=== PATIENT | male | born 2005 | race Caucasian/White ===

== ENCOUNTER 2023-12-26 20:52 | Emergency (ER) | payer BC, SELFPAY ==
[2023-12-26 20:56] VITALS: BP 159/109; BMI 27.4
[2023-12-26 21:16] LABS: % Basophils 0.5 % (0-2); % Eosinophils 0.6 % (0-6); % Immature Granulocytes 0.2 % (0-0.5); % Lymphocytes 28.3 % (20.5-51.1); % Monocytes 5.4 % (1.7-9.3); Absolute Eosinophils 0.1 10^3/uL (0-0.7); Absolute Lymphocytes 2.4 10^3/uL (1.2-3.4); Absolute Monocytes 0.5 10^3/uL (0.1-0.6); Absolute Neutrophils 5.6 10^3/uL (1.4-6.5); Hematocrit 45.9 % (39.0-52.0); Hemoglobin 15.4 g/dL (13.0-18.0); Mean Corp Hgb Conc. 33.6 g/dL (33.0-37.0); Mean Corpuscular Hgb 27.7 pg (27.0-31.0); Mean Corpuscular Volume 82.6 fL (80.0-94.0); Mean Platelet Volume 10.9 fL (7.4-10.4); Nucleated Red Blood Cells % 0 % (-); Platelet Count 204 10^3/uL (130-400); Red Blood Cell Count 5.56 10^6/uL (4.70-6.10); Red Cell Dist. Width 12.7 % (11.5-14.5); White Blood Cell Count 8.5 10^3/uL (4.8-10.8)
[2023-12-26 21:40] LABS: ALT (SGPT) 24 U/L (0-50); AST (SGOT) 29 U/L (17-59); Albumin 5.2 g/dl (3.5-5.0); Alkaline Phosphatase 58 U/L (38-126); Blood Urea Nitrogen 22 mg/dl (9-20); Calcium 9.2 mg/dl (8.4-10.2); Carbon Dioxide 26 mmol/L (22-30); Chloride 100 mmol/L (98-107); Estimated Creatinine Clearance 85 ml/min; Glucose 103 mg/dl (70-99); Potassium 4.1 mmol/L (3.5-5.1); Sodium 138 mmol/L (135-145); Total Protein 7.9 g/dl (6.3-8.2); eGFR > 60.00
[2023-12-26 21:42] LABS: Troponin I 0.015 ng/ml
[2023-12-26 21:55] LABS: Total Bilirubin 0.5 mg/dl (0.2-1.3)
[2023-12-26 22:05] VITALS: BP 118/74
--- NOTE | 2023-12-26 22:48 | ED.GENMED ---
History of Present Illness
General
Chief Complaint: Chest Pain
Source: patient
Exam Limitations: none
Time Seen by Provider: 12/26/23 22:12
History of Present Illness
History of Present Illness:
This is a 18 year old male that comes in with c/o feeling like his heart beat is taking over his chest. States that for the past week when he goes to bed at night he reads. States that he is reading the shin[employer] at this time. State that he feels
like his entire chest is filled with his heart beat. States that he does not feel like it is a panic attack but he has to get up and walk around and take deep breaths. States that then he may get a headache. States that occasionally he is
nauseated. Denies any fever, chills, chest pain, SOB, abd pain, vomiting, diarrhea, headache at this time, dizziness, urinary burning .
Past History
Past History
ED Past Medical History: Psychiatric (Anxiety); Negative Asthma, HTN, Hypercholesterolemia or NIDDM
ED Past Surgical History: None
Social History
Tobacco: Smoker (occasionally)
Alcohol: Occasional
Personal: Single
Living: alone
Review of Systems
Review of Systems
All Other Systems: ROS reviewed and negative except as documented in HPI and ROS
Constitutional: Reports no symptoms; Denies fever or chills
EENT: Reports no symptoms
Respiratory: Reports no symptoms; Denies cough or trouble breathing
Cardiac: Reports other (Chest filled with his heart beat)
ABD/GI: Reports nausea; Denies abdominal pain, vomiting or diarrhea
: Reports no symptoms; Denies dysuria, frequency or urgency
Musculoskeletal: Reports no symptoms
Skin: Reports no symptoms
Neurological: Denies dizzy or headache
Psychiatric: Reports anxiety
Phy Exam
General Physical Exam
General Presentation: well appearing and no apparent distress
General age: appears stated age
General Skin: warm and dry
General Habitus: normal
General Mental: alert
General Hydration: appears well hydrated
ENT Exam
ENT Exam: TM's normal, pharynx normal and neck supple
Eye Exam
Eye Exam: EOMI
Cardiovascular Exam
Cardiovascular Exam: regular rate/rhythm, no edema, no murmur and normal peripheral pulses
Pulmonary Exam
Pulmonary Exam: lungs clear, no respiratory distress, no rales, chest non tender, no crackles, no rhonchi, no wheezing and no cough
Gastrointestinal Exam
Gastrointestinal Exam: normal bowel sounds, non tender, soft, no organomegaly, no pulsatile mass and non distended
Musculoskeletal Exam
Musculoskeletal Exam: full ROM and no edema
Skin Exam
Skin Exam: normal color, warm/dry, no rash and no petechia
Psychiatric Exam
Psychiatric Exam: normal mood/affect
Scores
Heart Score for Chest Pain Patients
STEMI patient?: Not applicable
Course
Orders/Labs/Results
Orders:
Orders
12/26/23 20:53
Electrocardiogram (*1) Urgent
Reason for Study: Chest Pain
EKG- Treatment ONCE
CXR2 [CR Chest - 2 Views ] Urgent
Comment:
Reason For Exam: pain
12/26/23 21:06
Complete Blood Count/With Diff Urgent
Comprehensive Metabolic Panel Urgent
Troponin I Urgent
12/26/23 23:21
D-Dimer Urgent
Abnormal Lab Results
12/26/23
21:06
MPV 10.9 H fL
(7.4-10.4)
BUN 22 H mg/dl
(9-20)
Glucose 103 H mg/dl
(70-99)
Albumin 5.2 H g/dl
(3.5-5.0)
12/26/23 21:06
12/26/23 21:06
Dehydration, Glucose nonfasting, Albumin slightly elevated. D-dimer <0.27, Troponin 0.015
Vital Signs
Initial and Last Documented VS:
Initial Vital Signs
Temp Pulse Resp BP Pulse Ox
98.2 F 82 16 159/109 99
12/26/23 20:56 12/26/23 20:56 12/26/23 20:56 12/26/23 20:56 12/26/23 20:56
Last Documented Vital Signs
Temp Pulse Resp BP Pulse Ox
98.2 F 82 16 170/66 99
12/26/23 20:56 12/26/23 20:56 12/26/23 20:56 12/26/23 23:18 12/26/23 20:56
MDM/Problems Addressed
Differential Diagnosis Includes:
Anxiety,
MDM/Problems Addressed:
This is a 18 year old male that comes in with c/o feeling like his heart beat is filling his chest. States that when he lays down in bed at night this increased feeling of his heart beat filling his chest starts. Patient states that he is reading
the [employer].
Explained to patient that his blood work shows some dehydration. His troponin is normal. This sounds more like anxiety. Encouraged patient to change his choice of books. Will get D-dimer. Chest x-ray and labs.
Into see patient. Explained that his chest x-ray was normal and his D-dimer was negative. This is most likely anxiety. Patient to switch his book Selection to something that does not product anxiety. Patient to follow up with the family doctor.
Increase his water intake to 8-8oz glasses daily. Return with any concerns.
Chronic conditions affecting care: Psychiatric illness (Anxiety)
Acute Exacerbation and/or Progression of Chronic Illness: Psychiatric illness (Anxiety)
*Radiology
Radiology exam reviewed: preliminary read by ED provider (Chest- Negative for active disease)
*Pulse Oximetry
Patient hypoxic: no
*EKG
Interpreted by ED Provider?: Yes
Heart Rate: 79
Rate: normal
Rhythm: sinus arrhythmia
[place]: normal axis
Interval: normal interval
QRS Pattern: normal QRS
Ischemia: no ischemia
*Critical Care Note
Total Time (30-74mins, 75-104mins- exclusive of procedures): Not Applicable
ED Attending Note
-
Portions of this chart may have been created with voice recognition software.� Occasional wrong word or��sound alike� substitutions may have occurred due to the inherent limitations of voice recognition software.
Discharge Plan
Departure
Patient Disposition: Home (Routine Discharge)
Date of Disposition: 12/26/23
Time of Disposition: 23:59
Patient with high blood pressure during this ER visit?: Yes
Condition: Good
Covid-19: Not Applicable
Discharge Problem:
Anxiety
Instructions: Anxiety, Adult ED, BLOOD PRESSURE
Prescriptions:
No Action
No Current Medications
0
Referrals:
NONE,* [Active] -
Activity Restrictions/Additional Instructions:
As discussed,your blood work shows that you are Dehydration. Please increase your water intake to 8-8oz glasses daily. This is most likely anxiety. Please change your selection of books to read at night. Follow up with the family doctor for
recheck. IF YOU HAVE ANY OTHER CONCERNS PLEASE RETURN TO THE EMERGENCY ROOM.
Interventions
Interventions:
*Risk Screen - Suicide Last Done: 12/26/23 20:56
*General Assessment Last Done: 12/26/23 22:11
*Neglect/Abuse Screening Last Done: 12/26/23 20:56
ED- Fall Risk Assessment Last Done: 12/26/23 20:56
ED- Cardiac Assessment Last Done: 12/26/23 22:10
Discharge Date and Time
Print Language: BULGARIAN
[2023-12-26 23:18] VITALS: BP 170/66
[2023-12-26 23:39] LABS: D-Dimer < 0.27 ug/mlFEU (0.00-0.50)
[2023-12-27] VITALS: BP 157/68
== END 2023-12-27 00:09 | disposition home or self-care (01) ==
LOC: EMR 20:52
PROVIDERS: Clinical Nurse Specialist Family Health; Emergency Medicine; EMERGENCY PHYSICIAN Emergency Medicine; FAMILY PHYSICIAN Nurse Practitioner Adult Health
DX: F41.9 Anxiety disorder, unspecified (principal); R11.0 Nausea; I49.8 Other specified cardiac arrhythmias; E86.0 Dehydration; R03.0 Elevated blood-pressure reading, without diagnosis of hypertension; F17.200 Nicotine dependence, unspecified, uncomplicated
CPT/HCPCS: 99283; 71046; 80053; 84484; 85025; 85379; 93005

== ENCOUNTER 2025-02-14 18:09 | Emergency (ER) | payer BC, SELFPAY ==
[2025-02-14 18:11] VITALS: BP 137/80
[2025-02-14 20:12] VITALS: BMI 28.0
[2025-02-14] MEDS: NSS 1000 IV (20:25)
[2025-02-14 20:26] VITALS: BP 126/80
[2025-02-14 20:34] LABS: Hematocrit 46.0 % (39.0-52.0); Hemoglobin 15.2 g/dL (13.0-18.0); Mean Corp Hgb Conc. 33.0 g/dL (33.0-37.0); Mean Corpuscular Volume 81.7 fL (80.0-94.0); Nucleated Red Blood Cells % 0 % (-); Platelet Count 196 10^3/uL (130-400); Red Cell Dist. Width 13.1 % (11.5-14.5)
[2025-02-14 20:56] LABS: ALT (SGPT) 28 U/L (0-50); AST (SGOT) 21 U/L (17-59); Albumin 5.0 g/dl (3.5-5.0); Alkaline Phosphatase 50 U/L (38-126); Blood Urea Nitrogen 13 mg/dl (9-20); Calcium 9.7 mg/dl (8.4-10.2); Carbon Dioxide 27 mmol/L (22-30); Chloride 102 mmol/L (98-107); Estimated Creatinine Clearance 121 ml/min; Glucose 98 mg/dl (70-99); Potassium 4.3 mmol/L (3.5-5.1); Sodium 138 mmol/L (135-145); Total Protein 7.7 g/dl (6.3-8.2); eGFR > 60.00
--- NOTE | 2025-02-14 21:51 | EDRN ---
Updated patient and family on labs and on the delay on being seen due to being busy, patient and family understanding of this, provided with warm blanket, no other concerns a this time.
--- NOTE | 2025-02-14 22:21 | ED.GENMED ---
History of Present Illness
General
Chief Complaint: Dizziness
Time Seen by Provider: 02/14/25 22:16
History of Present Illness
History of Present Illness:
FOCUSED PAST MEDICAL HISTORY
- No significant past medical history
REVIEW OF OLD RECORDS
- Has had wisdom teeth extraction in the past
Note:
CHIEF COMPLAINT(S)
Dizziness and headache.
HISTORY OF PRESENT ILLNESS
The patient is a 19-year-old male who presented with dizziness and headache. The symptoms began yesterday morning while the patient was walking outside. The patient described the sensation as 'everything started to swirl and everything was
rotating.' An associated headache began at the same time, which the patient describes as 'pretty valuable' and worse now than initially. The patient indicates that the headache was persistent, even after naps, though it initially improved somewhat.
The patient experienced increased sensitivity to light (photophobia) and noted that these symptoms were similar to migraines, although no formal diagnosis of migraines had been made. This morning, around 5 oclock, upon rising, the sensation of
rotation returned and persisted. The patient also experienced nausea, vomiting, and diarrhea.
ADDITIONAL HISTORY OBTAINED FROM SOURCES OTHER THAN THE PATIENT
The patient�s family provided some relevant history during the conversation.
EXTERNAL RECORDS REVIEWED
The provider mentioned reviewing the blood work, which was reportedly normal.
SOCIAL DETERMINANTS AFFECTING HEALTH
Family was present during the encounter and contributed to discussing the patients symptoms, indicating family involvement in the patients healthcare.
PHYSICAL EXAM
- General: Well appearing but appears slightly uncomfortable
- HEENT: Moist oral mucosa
- Cardiovascular: No murmurs, normal heart rate, regular rhythm, No chest wall tenderness
- Pulmonary: No respiratory distress, breath sounds are clear and equal
- Abdomen: Soft with no peritoneal signs, no tenderness
- Neurologic: Excellent strength all extremities, no coordination deficits, normal finger-nose bilaterally and normal [id number]-ad-[id number] bilaterally, excellent sensation in all extremities
- Psychiatric: Appropriate mental status, normal insight and judgement
- Extremities: Nontender, no edema, moves all extremities equally
- Skin: No rash, no lesions
ELECTROCARDIOGRAM (EKG)
No information provided.
PLAN
- Administer Toradol, Reglan, and Benadryl.
- Complete a CT scan of the head.
- Reassessment after medication administration and imaging.
- Provide patient education regarding potential causes and treatment expectations.
DIFFERENTIAL DIAGNOSIS
The Differential Diagnosis includes, in no particular order and is not limited to:
- Benign Paroxysmal Positional Vertigo (BPPV)
- Migraine with aura
- Complex migraine
- Viral labyrinthitis
- Viral gastroenteritis
- Vestibular neuritis
- Inner ear infection
- Dehydration
- Central nervous system lesion
- Neurological disorder
SUMMARY OF ENCOUNTER
The patient presented to the emergency department with dizziness and headache. Onset was the previous day with associated nausea, vomiting, and diarrhea. Physical examination indicated normal coordination and strength but noted photophobia and
persistent rotation sensation upon standing. A CT scan was ordered to rule out more serious underlying conditions, and a combination of Toradol, Reglan, and Benadryl was planned for management of presumed migraine-type headache. Blood work was
reported normal.
MEDICATION RECONCILIATION
- Toradol for pain.
- Reglan and Benadryl to address nausea and potentially relieve headache.
MEDICAL DECISION MAKING
- Number and Complexity of Problems Addressed:
Chronic conditions affecting care were not directly mentioned, but the differential diagnosis includes:
- Benign Paroxysmal Positional Vertigo (BPPV)
- Migraine with aura
- Complex migraine
- Viral labyrinthitis
- Viral gastroenteritis
- Vestibular neuritis
- Inner ear infection
- Dehydration
- Central nervous system lesion
- Neurological disorder
- Data: Amount and/or Complexity of Data Reviewed and Analyzed
Category 1:
- My independent interpretation of the blood work indicated normal results.
Category 2:
- Information obtained from the patient�s family regarding symptoms and care context.
- Risk:
Consideration of Admission/Observation was not mentioned in the context of care decision-making.
DIAGNOSIS
- Dizziness (R42)
- Headache (R51)
- Nausea with vomiting (R11.2)
RADIOLOGY
- CT head obtained
EKG
-
LABS
- CBC is unremarkable, chemistries unremarkable
UPDATE
- Toradol, Reglan, fluids, Benadryl given.
- On reassessment at 1:10 AM, the patient does report overall improvement, he was able to get up and walk to the bathroom some dizziness and headache persist
SUMMARY OF ENCOUNTER
The patient is a 19-year-old male who presented to the emergency department with symptoms of dizziness, headache, nausea, vomiting, and diarrhea that began the previous day. The patient described a sensation of vertigo and a 'pretty valuable'
headache, which worsened from its initial presentation. He also experienced photophobia and symptoms similar to migraines but had not been formally diagnosed with migraines. The examination indicated no catastrophic neurologic issues such as
intracranial bleeding or mass. However, a CT scan was ordered to rule out significant neurological issues. The working assessment included a possible migraine and an inner ear issue, like vertigo. The management included administering medications
typical for migraine treatment and providing the patient with medication options for nausea upon discharge.
ASSESSMENT
The patient likely has a combination of migraine-type headaches or viral labyrinthitis with possible vestibular neuritis. A viral illness that triggered an inner ear issue is suspected.
EMERGENCY TREATMENTS ADMINISTERED
The patient received ketorolac (Toradol), metoclopramide (Reglan), and diphenhydramine (Benadryl) for management of headache, nausea, and dizziness.
PLAN
The patient is advised to take [id number] acetaminophen or ibuprofen at home as needed. A prescription for ondansetron (Zofran) was provided for nausea. The patient was advised to use diphenhydramine (Benadryl) at home to manage dizziness and
nausea.
INDEPENDENT REVIEW OF LABS AND INTERPRETATION OF TESTS
My independent interpretation of the external laboratory work reviewed indicated normal results.
MEDICATION RECONCILIATION
- Ketorolac (Toradol) administered in the ED for headache relief.
- Metoclopramide (Reglan) administered in the ED for nausea and dizziness.
- Diphenhydramine (Benadryl) administered in the ED for dizziness and nausea.
- Prescription for ondansetron (Zofran) provided for nausea management at home.
MEDICAL DECISION MAKING
- Number and Complexity of Problems Addressed: Chronic conditions affecting care include possible migraine with aura and vestibular neuritis. Differential diagnosis considerations: Benign Paroxysmal Positional Vertigo (BPPV), migraine with aura,
complex migraine, viral labyrinthitis, viral gastroenteritis, vestibular neuritis, inner ear infection, dehydration, central nervous system lesion, neurological disorder.
- Data:
Category 1
My independent review of previous laboratory work indicated normal results.
Obtained history from the patients family contributing to symptom assessment.
- Risk:
Prescription medication was prescribed for nausea.
Consideration of Admission/Observation: Escalation of care including admission/observation was considered given the complexity and risk of the patients presenting complaint, exam findings, and/or their underlying comorbidities. However, ultimately I
feel the patient is safe for outpatient management with close follow-up. Reasoning: Work-up is reassuring and does not reveal any acute life/organ-threatening processes, the patients symptoms are well controlled upon reevaluation, reexamination is
reassuring, vitals are stable, the patient is agreeable with discharge, and is reliable for follow-up.
DIAGNOSIS
- Dizziness (R42)
- Headache (R51) possibly migraine type
- Nausea with vomiting (R11.2)
Past History
Past History
ED Past Medical History: Psychiatric (Anxiety); Negative Asthma, HTN, Hypercholesterolemia or NIDDM
ED Past Surgical History: None
Social History
Tobacco: Smoker (occasionally)
Alcohol: Occasional
Personal: Single
Living: alone
Phy Exam
Physical Exam
Physical Exam:
See HPI
Course
Orders/Labs/Results
Orders:
Orders
02/14/25 20:23
0.9% Sodium Chloride 1000 ml [Nss] 1,000 ml IV BOLUS
02/14/25 20:25
CBC/With Diff [Complete Blood Count/With Diff] Urgent
CMP [Comprehensive Metabolic Panel] Urgent
02/14/25 22:29
CT Head W/o Iv Contrast Urgent
Comment:
Reason For Exam: severe OZUNA dizzy
Diphenhydramine [Benadryl] 25 mg IV NOW STA
Ketorolac [Toradol] 15 mg IV NOW STA
Metoclopramide [Reglan] 10 mg IV NOW STA
Abnormal Lab Results
02/14/25
20:25
Absolute Neuts (auto) 8.9 H 10^3/uL
(1.4-6.5)
Absolute Lymphs (auto) 1.1 L 10^3/uL
(1.2-3.4)
Neutrophils % 84.5 H %
(42.2-75.2)
Lymphocytes % 10.7 L %
(20.5-51.1)
02/14/25 20:25
02/14/25 20:25
Vital Signs
Initial and Last Documented VS:
Initial Vital Signs
Temp Pulse Resp BP Pulse Ox
37.0 C 85 18 137/80 100
02/14/25 18:11 02/14/25 18:11 02/14/25 18:11 02/14/25 18:11 02/14/25 18:11
Last Documented Vital Signs
Temp Pulse Resp BP Pulse Ox
37.0 C 74 16 126/80 100
02/14/25 18:11 02/14/25 20:26 02/14/25 20:26 02/14/25 20:26 02/14/25 22:23
*Pulse Oximetry
SaO2: 100
Oxygen Mode of Delivery: Room air
Patient hypoxic: no
*Critical Care Note
Total Time (30-74mins, 75-104mins- exclusive of procedures): Not Applicable
ED Attending Note
-
Portions of this chart may have been created with voice recognition software.� Occasional wrong word or��sound alike� substitutions may have occurred due to the inherent limitations of voice recognition software.
Discharge Plan
Departure
Patient Disposition: Home (Routine Discharge)
Date of Disposition: 02/15/25
Time of Disposition: 01:11
Patient with high blood pressure during this ER visit?: Yes
Discharge Problem:
Migraine
Instructions: Vertigo (a Type of Dizziness) (DC), Migraine in adults
Prescriptions:
New
ondansetron HCl 4 mg tablet
4 mg PO Q8H PRN (Reason: nausea and vomiting) Qty: 14 0RF
Referrals:
Bhargavi Love CRNP [Family Provider, General]
Activity Restrictions/Additional Instructions:
You could try Benadryl at home which may help the dizziness and nausea as well. I am also sending a prescription for Zofran to your pharmacy for nausea. You could also take [id number] Tylenol. I recommend 3-4 llcg-ajj-zttezkt ibuprofen
(Motrin) every 8 hours with food for a few days. Return here if worse. All of these medications work in different ways and can be taken together.
Interventions
Interventions:
*Risk Screen - Suicide Last Done: 02/14/25 20:12
*General Assessment Last Done: 02/14/25 20:12
*Neglect/Abuse Screening Last Done: 02/14/25 20:12
*ED- Fall Risk Assessment Last Done: 02/14/25 20:12
*ED COVID-19 Vaccine History Last Done: 02/14/25 20:12
ED- Neurological Assessment Last Done: 02/14/25 20:30
ED- Cardiac Assessment Last Done: 02/14/25 20:30
Discharge Date and Time
Print Language: [place]AST [place]
[2025-02-14] MEDS: TORADOL 15 MG IV (22:47)
[2025-02-14] MEDS: BENADRYL 25 MG IV (22:47)
[2025-02-14] MEDS: REGLAN 10 MG IV (22:48)
--- NOTE | 2025-02-15 00:38 | EDRN ---
Updated on CT scan, patient had walked into the bathroom and still dizzy per family, patient currently sleeping, did inform Dr. Valentin
== END 2025-02-15 01:33 | disposition home or self-care (01) ==
LOC: EMR 18:09
PROVIDERS: Emergency Medicine; EMERGENCY PHYSICIAN Emergency Medicine; FAMILY PHYSICIAN Nurse Practitioner Adult Health
DX: G43.909 Migraine, unspecified, not intractable, without status migrainosus (principal); R03.0 Elevated blood-pressure reading, without diagnosis of hypertension; F41.9 Anxiety disorder, unspecified; F17.200 Nicotine dependence, unspecified, uncomplicated
CPT/HCPCS: 99284; 96374; 96375 ×2; 96361; 70450; 80053; 85025